=== PATIENT | male | born 1975 | race Caucasian/White ===

== ENCOUNTER 2021-08-26 10:48 | Outpatient (CLI) | payer BC, SELFPAY ==
--- NOTE | 2021-08-26 11:07 | XR_ITS ---
WS: [id number] Exam: XR thoracic spine 3V* [id number] Date/Time of Exam: 08/26/2021 11:25 AM Reason For Exam: PAIN IN THORACIC SPINE No fracture or dislocation. No significant scoliosis. Paraspinal soft tissues are unremarkable. XR/XR thoracic spine 3V* [id number] IMPRESSION: 1. Unremarkable T-spine study.
--- NOTE | 2021-08-26 11:07 | XR_ITS ---
WS: [id number] Exam: XR lumbar spine min 4V [id number] Date/Time of Exam: 08/26/2021 11:25 AM Reason For Exam: VERTEBROGENIC LOW BACK PAIN Interbody fusion of the spine at the L3-4 level with pedicle screws and posterior rods. A disc implan t is noted at this level. The fusion is ossified and in satisfactory alignment. Laminectomy defect of L4. Degenerative narrowing of the L4-5 disc space. 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 XR/XR lumbar spine min 4V [id number] IMPRESSION: 1. No acute fracture or malalignment. 2. Stable-appearing interbody fusion at L3-4. 3. Degenerative thinning of the L4-5 disc.
== END 2021-08-26 10:49 | disposition home or self-care (01) ==
PROVIDERS: Family Provider Family Medicine; Visit Provider Anesthesiology Pain Medicine
DX: M54.6 Pain in thoracic spine (principal); M54.51 Vertebrogenic low back pain
CPT/HCPCS: 72072; 72110